=== PATIENT | female | born 2000 | race Asian ===

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

== ENCOUNTER → 2020-08-11 | Outpatient (CLI) | payer BC, OTHER | LOC: LAB 14:23 | PROVIDERS: ATTEND Family Medicine | DX: R05 Cough (principal); J02.9 Acute pharyngitis, unspecified; R53.83 Other fatigue; R09.82 Postnasal drip; Z20.828 Contact with and (suspected) exposure to other viral communicable diseases ==